=== PATIENT | female | born 1990 | race Caucasian/White ===

== ENCOUNTER 2020-07-02 13:13 | Emergency (ER) | payer BC, SELFPAY ==
--- NOTE | ~2020-07-02 | CT_ITS ---
EXAMINATION: CT brain wo con DATE: 07/02/2020 14:12 INDICATION: Head injury. Patient is on blood thinners. TECHNIQUE: Computed tomography (CT) of the head was performed without intravenous contrast. The mA wa s adjusted according to patient size. Iterative reconstruction technique was employed. Exam dose: 60 5.33 mGy-cm total exam DLP. COMPARISON: None FINDINGS: No intracranial mass lesion or hemorrhage or cerebrovascular accident. No midline shift or mass effect. Normal aguilar-white matter differentiation. Normal ventricular size. Bilateral carotid siphon internal carotid artery calcifications are noted. No subdural or epidural hematoma. No skull fracture or bone destruction. The mastoid air cells and included paranasal sinuses are yajaira lly developed and aerated. IMPRESSION: Bilateral carotid siphon internal carotid artery calcifications No acute intracranial finding Reviewed, dictated and finalized at [facility]. Reviewed, dictated and finalized at [facility].
[2020-07-02 13:18] VITALS: BP 107/71; PULSE 94; RESP 16; TEMP 36.6; O2SAT 100
--- NOTE | 2020-07-02 14:10 | ED.HA ---
HPI - Headache General Chief Complaint: Headache Stated Complaint: Headache x 3 days Time Seen by Provider: 07/02/20 13:20 Source: patient Mode of arrival: ambulatory Limitations: no limitations History of Present Illness HPI Narrative: This is a 29-year-old female that presents to the emergency department for headache times 3 days. Reports she was painting and set up and hit her head really hard on her TV. Reports that she has had headaches and nausea. Reports she is on blood thinners for a recent DVT of the left lower extremity. Denies fever, vision changes, vomiting, numbness, or weakness. Related Data Home Medications Medication Instructions Recorded Confirmed apixaban 5 mg tablet 5 mg PO BID 03/26/20 03/26/20 lorazepam 1 mg tablet 1 mg PO DAILY PRN 03/26/20 03/26/20 paroxetine HCl 40 mg tablet 40 mg PO DAILY 03/26/20 03/26/20 Allergies Allergy/AdvReac Type Severity Reaction Status Date / Time cephalexin [From Keflex] Allergy Mild Rash Verified 03/26/20 08:51 sulfamethoxazole Allergy Mild Rash Verified 03/26/20 08:51 [From Bactrim] trimethoprim [From Bactrim] Allergy Mild Rash Verified 03/26/20 08:51 Review of Systems Review of Systems: Narrative: CONSTITUTIONAL: Denies fever EYES: Denies visual changes GASTROINTESTINAL: Denies vomiting NEUROLOGIC: Reports headache. Denies numbness, or weakness. All systems reviewed & are unremarkable except as noted in HPI and below PMFSH Past Medical History Medical History Anxiety Depression Hx of blood clots Lupus Surgical History Surgical History History of abdominoplasty (06/2019) History of nasal septoplasty (11/2019) History of removal of cyst (2008) History of tonsillectomy and adenoidectomy (1997) Hx of gastric bypass (2013) Family History Family History Other ADHD Alcoholism Asthma Autism Colon cancer Depression with anxiety Diabetes mellitus Hypertension Thyroid disease Social History Social History Smoking status: Never smoker Second hand tobacco smoke exposure: No Alcohol intake: never Substance use: never Substance use type: does not use Gender identity (if verbalized by the patient): Female Exam Narrative: Exam Narrative: GENERAL: Well-appearing, well-nourished, and in no acute distress. HEAD: Normocephalic, atraumatic. EYES: PERRLA and EOMI. ENT: Nares clear, no rhinorrhea or epistaxis. Mucous membranes moist. Oropharynx without tonsillar hypertrophy exudate or other lesions. Bilateral TMs pearly aguilar non-bulging NECK: Supple. No adenopathy or masses. No midline cervical spine tenderness CHEST: Clear to auscultation. No respiratory distress. No wheezes rales or rhonchi HEART: Regular rate and rhythm. No murmur heard. Normal peripheral pulses. EXTREMITIES: Normal range of motion. No edema. Strength equal in bilateral upper and lower extremities (5/5) SKIN: Warm, dry, no rash. NEURO: No focal deficits. Alert and oriented x3. Cranial nerves II through XII grossly intact PSYCH: Normal mood and affect Course Vital Signs Vital signs: Vital Signs Temperature 97.8 F 07/02/20 13:18 Pulse Rate 94 07/02/20 13:18 Respiratory Rate 16 07/02/20 13:18 Blood Pressure 107/71 07/02/20 13:18 Pulse Oximetry 100 07/02/20 13:18 Temperature 97.8 F 07/02/20 13:18 Pulse Rate 94 07/02/20 13:18 Respiratory Rate 16 07/02/20 13:18 Blood Pressure 107/71 07/02/20 13:18 Pulse Oximetry 100 07/02/20 13:18 MDM - Headache MDM Narrative Medical decision making narrative: Presents to the emergency department for headache after head injury a couple of days ago. Patient is currently on blood thinner for DVT of the left lower extremity. She is afebrile and nontoxic-appearing. She is neur
[2020-07-02] MEDS: SODIUM CHLORIDE 0.9% IV 1,000 ML 999 ML IV CONT (14:15)
[2020-07-02] MEDS: METOCLOPRAMIDE HCL INJ 10 MG/2 ML VIAL IV PUSH (14:15)
[2020-07-02] MEDS: diphenhydrAMINE HCl INJ 50 MG/ML VIAL 25 MG IV PUSH (14:15)
[2020-07-02 15:12] VITALS: BP 110/75; PULSE 90; RESP 16; O2SAT 100
== END 2020-07-02 15:13 | disposition home or self-care (01) ==
PROVIDERS: Emergency Provider Emergency Medicine; PCP Physician Assistant
DX: S06.0X0A Concussion without loss of consciousness, initial encounter (principal); F41.9 Anxiety disorder, unspecified; F32.9 Major depressive disorder, single episode, unspecified; Z86.718 Personal history of other venous thrombosis and embolism; Z98.84 Bariatric surgery status; Z79.01 Long term (current) use of anticoagulants; I65.23 Occlusion and stenosis of bilateral carotid arteries; W22.8XXA Striking against or struck by other objects, initial encounter
CPT/HCPCS: 70450; 96365; 96375; 99284; J0131; J1200; J2765; J7030

== ENCOUNTER 2020-07-16 12:39 | Emergency (ER) | payer BC, SELFPAY ==
[2020-07-16 12:44] VITALS: BP 110/66; PULSE 87; RESP 16; TEMP 37; O2SAT 100
--- NOTE | 2020-07-16 13:46 | PC.NURSE ---
Pt has decided to leave and come back later.
== END 2020-07-16 13:46 | disposition left against medical advice (07) ==
LOC: ANHED 13:48
PROVIDERS: PCP Physician Assistant
DX: R20.8 Other disturbances of skin sensation (principal)
CPT/HCPCS: 99199

== ENCOUNTER 2020-08-07 10:32 | Outpatient (CLI) | payer BC, SELFPAY ==
--- NOTE | ~2020-08-07 | US_ITS ---
EXAMINATION: US venous doppler [facility] DATE: 08/07/2020 11:05 INDICATION: Chronic deep venous thrombosis TECHNIQUE: Larsen scale images without and with compression and Doppler images of the left lower extrem ity veins were obtained. COMPARISON: None FINDINGS: The left common femoral vein, profunda femoral vein, femoral vein, popliteal vein, peroneal trunk, posterior tibial veins, and greater saphenous vein are patent. IMPRESSION: 1. Patent left lower extremity veins. No evidence of deep venous thrombosis. Reviewed, dictated and finalized at [facility].
== END 2020-08-07 10:33 | disposition home or self-care (01) ==
PROVIDERS: PCP Family Medicine; Visit Provider Internal Medicine Hematology & Oncology
DX: I82.5Z2 Chronic embolism and thrombosis of unspecified deep veins of left distal lower extremity (principal)
CPT/HCPCS: 93971

== ENCOUNTER 2020-11-09 10:15 | Outpatient (CLI) | payer BC, SELFPAY ==
[2020-11-09 10:42] LABS: Basophils Percent Auto 0.6 % (0.2-1.2); Eosinophils Absolute Auto 0.1 K/mm3 (0-0.3); Eosinophils Percent Auto 2.4 % (0-4.4); Hematocrit 34.8 % (37.0-47.0); Hemoglobin 11.1 g/dL (12.0-15.0); Immature Granulocyte Absolute 0.01 K/mm3 (0.00-0.031); Immature Granulocyte Percent A 0.2 % (0-0.5); Lymphocytes Absolute Auto 1.57 K/mm3 (0.9-3.2); Lymphocytes Percent Auto 33.5 % (18.3-44.2); Mean Corpuscular HGB Conc 31.9 g/dl (32-36); Mean Corpuscular Hemoglobin 28.5 pg (26-34); Mean Corpuscular Volume 89.2 fl (80-100); Mean Platelet Volume 10.3 fl (7.4-10.4); Monocytes Absolute Auto 0.4 K/mm3 (0.1-0.6); Monocytes Percent Auto 8.3 % (2.6-8.5); Neutrophils Absolute Auto 2.6 K/mm3 (1.3-6.7); Platelet Count Result 351 k/mm3 (150-375); Red Cell Distribution Width 13.5 % (11.5-14.5); White Blood Count 4.7 K/mm3 (4.5-10.0)
[2020-11-09 12:14] LABS: D Dimer 0.35 ug/mL (<0.48)
[2020-11-09 12:16] LABS: Alanine Aminotransferase 12 U/L (4-35); Albumin Level 4.6 g/dL (3.5-5.1); Alkaline Phosphatase 72 U/L (38-126); Anion Gap 8 mmol/L (8-16); Aspartate Amino Transferase 47 U/L (14-36); Bilirubin,Total 0.5 mg/dL (0.2-1.3); Blood Urea Nitrogen 12 mg/dL (7-17); Calcium 9.4 mg/dL (8.4-10.2); Carbon Dioxide 26 mmol/L (22-30); Chloride 105 mmol/L (98-107); Estimated Glomerular Filt Rate > 60; Glucose 86 mg/dL (65-110); Magnesium 2.1 mg/dL (1.6-2.3); Potassium 4.7 mmol/L (3.4-5.0); Sodium 139 mmol/L (137-145)
[2020-11-09 12:32] LABS: Iron 28 ug/dL (37-170)
[2020-11-09 12:45] LABS: Percent Iron Saturation 6 % (20-50)
[2020-11-09 13:06] LABS: Ferritin 5.52 ng/mL (6.24-137)
== END 2020-11-09 10:16 | disposition home or self-care (01) ==
LOC: ANHLAB 10:19
PROVIDERS: PCP Family Medicine; Visit Provider Internal Medicine Hematology & Oncology
DX: I82.5Z2 Chronic embolism and thrombosis of unspecified deep veins of left distal lower extremity (principal); D64.9 Anemia, unspecified
CPT/HCPCS: 36415; 80053; 82607; 82728; 83540; 83550; 83735; 85025; 85380

== ENCOUNTER 2021-05-20 13:01 | Emergency (ER) | payer BC, SELFPAY ==
[2021-05-20 13:24] VITALS: BP 103/61; PULSE 83; RESP 17; TEMP 36.6; O2SAT 100
--- NOTE | 2021-05-20 13:32 | ED.URI ---
HPI - URI/Sore Throat General Chief Complaint: Upper Respiratory Infection Stated Complaint: flu like symptoms Time Seen by Provider: 05/20/21 13:32 Source: patient Mode of arrival: ambulatory Limitations: no limitations History of Present Illness HPI Narrative: 30-year-old female presents with nasal congestion, sore throat, cough, headaches, body aches and chills, low-grade fever for 6 days. Yesterday temp was around 100.1. Has been taking Tylenol to treat pain and fever. Not taking [id number] medications to treat congestion or cough. Denies chest pain and shortness of breath has a history of gastric bypass and is not able to take ibuprofen. Patient took 2 home Covid test that were both negative. Patient thinks that she has flu and would like a nasal swab. Systems reviewed and negative except as noted above. Related Data Home Medications Medication Instructions Recorded Confirmed lorazepam 1 mg tablet 1 mg PO DAILY PRN 03/26/20 05/20/21 paroxetine HCl 40 mg tablet 40 mg PO DAILY 03/26/20 05/20/21 cyanocobalamin (vitamin B-12) 1,000 mcg WEEKLY 05/20/21 05/20/21 Allergies Allergy/AdvReac Type Severity Reaction Status Date / Time cephalexin [From Keflex] Allergy Mild Rash Verified 05/20/21 13:34 sulfamethoxazole Allergy Mild Rash Verified 05/20/21 13:34 [From Bactrim] trimethoprim [From Bactrim] Allergy Mild Rash Verified 05/20/21 13:34 Review of Systems Review of Systems: CONSTITUTIONAL: Reports fever, chills, or sweats. EYES: Denies visual changes, redness, or discharge. ENT: Reports rhinorrhea, congestion, sore throat. Denies otalgia. CARDIOVASCULAR: Denies chest pain, palpitations, or edema. RESPIRATORY: Reports cough. Denies dyspnea. GASTROINTESTINAL: Denies abdominal pain, nausea, vomiting, or diarrhea. GENITOURINARY: Denies dysuria or hematuria. SKIN: Denies rash or itching. MUSCULOSKELETAL: Denies back pain, joint pain, or myalgia. NEUROLOGIC: Denies headache, numbness, or weakness. PSYCHIATRIC: Denies anxiety or depression. All other systems reviewed are negative, except as documented in HPI. [facility] Past Medical History Medical History Anxiety Depression Hx of blood clots Lupus Surgical History Surgical History History of abdominoplasty (06/2019) History of nasal septoplasty (11/2019) History of removal of cyst (2008) History of tonsillectomy and adenoidectomy (1997) Hx of gastric bypass (2013) Family History Family History Other ADHD Alcoholism Asthma Autism Colon cancer Depression with anxiety Diabetes mellitus Hypertension Thyroid disease Social History Social History Smoking status: Never smoker Second hand tobacco smoke exposure: No Alcohol intake: never Substance use: never Substance use type: does not use Gender identity (if verbalized by the patient): Female Spiritual care concerns: No Comments At time of signature, agree with nursing past medical, surgical, social and family history. There is no relevant family history pertinent to the presenting complaint. Exam Narrative: GENERAL: This is a well-nourished, well-developed patient, in no apparent distress. HEAD: normocephalic, atraumatic. EYES: PERRL. Sclera clear/white. Vision is grossly intact. EARS: External ears normal, auditory canals clear and without drainage, TMs normal without perforation. Hearing grossly intact. NOSE: External nose normal with clear nasal discharge, nares without redness. THROAT: Mucous membranes moist, posterior pharynx clear. NECK: Neck supple, non-tender without lymphadenopathy, masses or thyromegaly. CARDIOVASCULAR: Regular rate and rhythm without murmurs, gallops, or rubs. RESPIRATORY: Clear to auscultation. Breath sounds equal bilatera
== END 2021-05-20 14:02 | disposition home or self-care (01) ==
PROVIDERS: Emergency Provider Nurse Practitioner Family
DX: B34.9 Viral infection, unspecified (principal); Z98.84 Bariatric surgery status; F41.9 Anxiety disorder, unspecified; F32.A Depression, unspecified
CPT/HCPCS: 87804; 99213; G0463